=== PATIENT | female | born 2000 | race Caucasian/White ===

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

== ENCOUNTER 2024-03-11 11:19 | Emergency (ER) | payer OTHER ==
[2024-03-11 11:29] VITALS: BP 108/73; PULSE 58; RESP 16; TEMP 97.6; BMI 27.0
[2024-03-11] MEDS ORDERED: KETOROLAC TROMETHAMINE 30 MG/1 ML VIAL ONE (12:15)
[2024-03-11] MEDS ORDERED: ACETAMINOPHEN INJECTION 100 ML ONE (12:15)
[2024-03-11] MEDS ORDERED: ONDANSETRON 4 MG/2 ML VIAL ONE (12:15)
[2024-03-11 12:21] LABS: BASO % 0.6 % (0-2.0); EOS % 1.1 % (0-4.5); HEMATOCRIT 46.3 % (32.4-45.2); HEMOGLOBIN 15.9 GM/dL (10.7-15.3); LYMPH % 24.1 % (8-40); MCH 32.2 pg (25.7-33.7); MCHC 34.4 g/dl (32.0-36.0); MEAN CELL VOLUME 93.6 fl (80-96); MEAN PLT VOLUME 6.9 fl (7.5-11.1); MONO % 9.7 % (3.8-10.2); NEUT % 64.5 % (42.8-82.8); PLATELET COUNT 377 10^3/uL (134-434); RBC 4.95 M/mm3 (3.60-5.2); WHITE BLOOD COUNT 9.6 K/mm3 (4.0-10.0)
[2024-03-11] MEDS: SODIUM CHLORIDE 0.9% 500 ML INFUS.BAG IV ONE (12:28)
[2024-03-11] MEDS: ACETAMINOPHEN 1000 MG/100 ML BAG IVPB ONE (12:29)
[2024-03-11] MEDS: KETOROLAC TROMETHAMINE 30 MG/1 ML VIAL IVPUSH ONE (12:29)
[2024-03-11] MEDS: ONDANSETRON 4 MG/2 ML VIAL IVPUSH ONE (12:30)
[2024-03-11 12:45] LABS: POTASSIUM 3.9 mmol/L (3.5-5.1)
[2024-03-11 12:48] LABS: ALBUMIN 4.3 g/dl (3.4-5.0); CALCIUM 9.9 mg/dL (8.5-10.1)
[2024-03-11 12:51] LABS: CREATININE 0.8 mg/dL (0.55-1.3)
[2024-03-11 12:53] LABS: BILIRUBIN,TOTAL 0.5 mg/dL (0.2-1); TOT PROT 7.7 g/dl (6.4-8.2)
[2024-03-11 15:15] LABS: HIV INTERPRETATION NEGATIVE (NEGATIVE)
== END 2024-03-11 16:00 | disposition home or self-care (01) ==
LOC: JER 11:19
PROC: 3E033NZ Introduction of Analgesics, Hypnotics, Sedatives into Peripheral Vein, Percutaneous Approach (ICD-10-PCS; principal; 2024-03-11)
PROC: 3E0333Z Introduction of Anti-inflammatory into Peripheral Vein, Percutaneous Approach (ICD-10-PCS; 2024-03-11)
PROC: 3E033GC Introduction of Other Therapeutic Substance into Peripheral Vein, Percutaneous Approach (ICD-10-PCS; 2024-03-11)
DX: J40 Bronchitis, not specified as acute or chronic (principal); R10.30 Lower abdominal pain, unspecified; R05.9 Cough, unspecified; R11.0 Nausea; Z20.822 Contact with and (suspected) exposure to COVID-19
CPT/HCPCS: 0241U-QW; 36415; 71046-TC-FY; 80053; 83690; 84703; 85025; 86803; 87389; 99284-25; J0131